=== PATIENT | male | born 1965 | race Caucasian/White ===

== ENCOUNTER 2017-05-25 04:13 | Emergency (ER) | payer SELFPAY ==
[~2017-05-25] VITALS: Ht 177.8 cm; Wt 120.5 kg
[2017-05-25 04:19] VITALS: Ht 177.8 cm; Wt 120.5 kg
[2017-05-25] MEDS ORDERED: morphine 4 MG/ML VIAL IV STA (05:01)
[2017-05-25] MEDS ORDERED: ONDANSETRON 4 MG INJ IV STA (05:01)
[2017-05-25 05:20] LABS: ADD SCAN DIFF NO
--- NOTE | 2017-05-25 05:25 | RADRPT ---
PROCEDURE: Chest. CLINICAL INDICATION: Chest pain. TECHNIQUE: Single frontal view of the chest was obtained. COMPARISON: None. FINDINGS: The cardiac silhouette is enlarged. The aortic arch is unremarkable. There is no focal consolidati on, vascular congestion or pleural effusion. There is no pneumothorax. IMPRESSION: Cardiomegaly. .Ramesh Walls MD, MD Date Time Electronically viewed and signed by .Ramesh Walls MD, on 05/25/2017 05:25 .T/
[2017-05-25 05:26] LABS: BASOPHILS % 0.5 % (0.0-2.0); EOSINOPHILS # 0.2 10^3/ul (0.0-0.5); EOSINOPHILS % 2.7 % (0.0-7.0); HEMATOCRIT 44.3 % (42.0-52.0); HEMOGLOBIN 14.1 g/dl (14.0-18.0); LYMPHOCYTES # 1.2 10^3/ul (0.8-2.9); LYMPHOCYTES % 15.1 % (15.0-51.0); MEAN CORPUSCULAR HEMOGLOBIN 25.5 pg (29.0-33.0); MEAN CORPUSCULAR HGB CONC 31.8 g/dl (32.0-37.0); MEAN CORPUSCULAR VOLUME 80.3 fl (82.0-101.0); MEAN PLATELET VOLUME 12.7 fl (7.4-10.4); MONOCYTE # 0.7 10^3/ul (0.3-0.9); MONOCYTES % 8.9 % (0.0-11.0); NEUTROPHIL # 5.9 10^3/ul (1.6-7.5); NEUTROPHILS % 72.3 % (39.0-77.0); PLATELET COUNT 160 10^3/UL (140-415); RED BLOOD COUNT 5.52 10^6/ul (4.70-6.10); RED CELL DISTRIBUTION WIDTH 13.2 % (11.5-14.5); WHITE BLOOD COUNT 8.1 10^3/ul (4.8-10.8)
[2017-05-25 05:40] LABS: INR 0.94; PROTIME 12.6 Sec (12.2-14.2)
[2017-05-25 05:41] LABS: PARTIAL THROMBOPLASTIN TIME 29.2 Sec (25.0-35.0)
[2017-05-25 05:42] LABS: CALCIUM 9.1 mg/dl (8.4-10.2); CREATININE 0.99 mg/dl (0.61-1.24); POTASSIUM 4.6 mmol/L (3.5-5.1)
[2017-05-25 05:54] LABS: TROPONIN-I 0.025 ng/ml (0.00-0.12)
--- NOTE | 2017-05-25 06:10 | RADRPT ---
PROCEDURE: CT Brain without. CLINICAL INDICATION: Headache TECHNIQUE: A CT of the brain was performed utilizing axial sections from the skull base through th e vertex without contrast. The scan was reviewed in soft tissue brain and high frequency resolution bone algorithm windows. Images were reviewed on a high-resolution PACS workstation. The exam CTDI = 44.81 mGy, and the DLP = 720.23 mGy-cm. One or more of the following dose reduction techniques w ere used: Automated exposure control, adjustment of the mA and / or kV according to patient size, o r use of iterative reconstruction technique. COMPARISON: None available FINDINGS: The ventricles are normal in size and midline in position. There is no intracranial hemorrhage, mid line shift, or mass effect. No abnormal extra-axial fluid collections are identified. The marvin-whi te differentiation is well preserved. The basal cisterns are patent. The posterior fossa is unrema rkable. The visualized portions of the orbits are unremarkable. There is mucosal thickening of the right max illary sinus. The remainder of the paranasal sinuses and mastoid air cells are clear. No calvarial fracture or abnormality are identified. The soft tissues are unremarkable. IMPRESSION: 1. No acute intracranial abnormality identified. 2. Mucosal thickening of the right maxillary sinus. RPTAT: HH .Yvette Allan MD, MD Date Time Electronically viewed and signed by .Yvette Allan MD, on 05/25/2017 06:09 .G/
[2017-05-25] MEDS ORDERED: TRAM50TA2 PO (06:13)
[2017-05-25] MEDS ORDERED: SOD CHLORIDE 0.9% 1,000 ML IV STA (07:01)
--- NOTE | 2017-05-25 07:11 | ERD ---
ER Documentation Chief Complaint Date/Time DATE: 05/25/17 TIME: 07:02 Chief Complaint pt reports not feeling well since thursday, pain with cough and bad hawley HPI This is a 51-year-old male who is been discharged by Dr. Fernandes. The patient told the nurse that he has never seen a physician while he is been in the ER here overnight. He states the only person he is seen is the electronics repair technician, and nurse. The patient is very upset that is being discharged after not even speaking to a physician or having his labs, and x-rays explained to him. I checked the documentation system and there is not a note written on the patient by Dr. Fernandes. Patient is complaining at Thursday he started having some malaise and fatigue with a dull frontal headache. The patient states he has had off-and-on chills throughout the weekend with body aches frontal headache and dry cough. Denies any stiff neck or photophobia no chest pain shortness of breath abdominal pain nausea vomiting diarrhea. 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 The patient states that he drank a few bottles of Pedialyte and feels like he has had less urinary output and he should. He denies any urinary complaints. Denies any focal neurological complaints. No vision or speech change. States his headache is nearly gone at this time. But he states that he does feel like he needs IV fluids. ROS All systems reviewed and are negative except as per history of present illness. Medications Home Meds Active Scripts Tramadol HCl (Tramadol HCl) 50 Mg Tablet, 50 MG PO Q4 Y for PAIN, #20 TAB Prov:ARJUN FERNANDES 05/25/17 Allergies Allergies: Coded Allergies: acetaminophen (Verified Allergy, Unknown, vomiting, 05/25/17) oxycodone (Verified Allergy, Unknown, vomiting, 05/25/17) PMhx/Soc Medical and Surgical Hx: pt denies Medical Hx, pt denies Surgical Hx Hx Alcohol Use: No Hx Substance Use: No Hx Tobacco Use: No Smoking Status: Never smoker FmHx Family History: No coronary disease Physical Exam Vitals Vital Signs Date Time Temp Pulse Resp B/P Pulse Ox O2 Delivery O2 Flow Rate FiO2 05/25/17 05:01 Nasal Cannula 05/25/17 04:19 98.9 123 18 134/83 94 Physical Exam Const: Well-developed, well-nourished Head: Atraumatic, normocephalic Eyes: Normal Conjunctiva, PERRLA, EOMI, normal sclera, no nystagmus ENT: Normal External Ears, Nose and Mouth, moist mucus membranes. Neck: Full range of motion. No meningismus, no lymphadenopathy. Resp: Clear to auscultation bilaterally, no wheezing, rhonchi, rales Cardio: Regular rate and rhythm, no murmurs, S1 S2 present Abd: Soft, non tender x 4, non distended. Normal bowel sounds, no guarding or rebound, no pulsitile abdominal masses or bruits Skin: No petechiae or rashes, no ecchymosis , no maculopapular rash Back: No midline or flank tenderness Ext: No cyanosis, or edema, FROM x 4, normal inspection, neurovascularly intact x 4 Neur: Awake and alert, STR 5/5 x 4, sensation intact x 4, no focal findings, cerebellum intact Psych: Normal Mood and Affect Result Diagram: 05/25/17 0500 05/25/17 0500 Results 24 hrs Laboratory Tests Test 05/25/17 05:00 White Blood Count 8.110^3/ul Red Blood Count 5.5210^6/ul Hemoglobin 14.1g/dl Hematocrit 44.3% Mean Corpuscular Volume 80.3fl Mean Corpuscular Hemoglobin 25.5pg Mean Corpuscular Hemoglobin Concent 31.8g/dl Red Cell Distribution Width 13.2% Platelet Count 69169^3/UL Mean Platelet Volume 12.7fl Neutrophils % 72.3% Lymphocytes % 15.1% Monocytes % 8.9% Eosinophils % 2.7% Basophils % 0.5% Nucleated Red Blood Cells % 0.0/100WBC Neutrophils # 5.910^3/ul Lymphocytes # 1.210^3/ul Monocytes # 0.710^3/ul Eosinophils # 0.210^3/ul Basophils # 0.010^3/ul Nucleated Red Blood Cells # 0.010^3/ul Prothrombin Time 12.6Sec Prothrombin Time Ratio 1.0 INR International Normalized Ratio 0.94 Activated Partial Thromboplast Time 29.2Sec Sodium Level 139mmol/L Potassium Level 4.6mmol/L Chloride Level 101mmol/L Carbon Dioxide Level 27mmol/L Anion Gap 16 Blood Urea Nitrogen 12mg/dl Creatinine 0.99mg/dl Glucose Level 121mg/dl Calcium Level 9.1mg/dl Troponin I 0.025ng/ml B-Type Natriuretic Peptide 123PG/ML Current Medications Medications (Trade) Dose Ordered Sig/Saeed Route PRN Reason Start Time Stop Time Status Last Admin Dose Admin Ondansetron HCl (Zofran Inj) 4 mg ONCE STAT IV 05/25/17 05:01 05/25/17 05:02 DC 05/25/17 05:11 Morphine Sulfate 4 mg 4 mg ONCE STAT IV 05/25/17 05:01 05/25/17 05:02 DC 05/25/17 05:12 Sodium Chloride (NS) 1,000 ml @ 1,000 mls/hr Q1H STAT IV 05/25/17 07:01 05/25/17 08:00 05/25/17 07:19 Procedures/MDM PROCEDURE: CT Brain without. CLINICAL INDICATION: Headache TECHNIQUE: A CT of the brain was performed utilizing axial sections from the skull base through the vertex without contrast. The scan was reviewed in soft tissue brain and high frequency resolution bone algorithm windows. Images were reviewed on a high-resolution PACS workstation. The exam CTDI = 44.81 mGy, and the DLP = 720.23 mGy-cm. One or more of the following dose reduction techniques were used: Automated exposure control, adjustment of the mA and / or kV according to patient size, or use of iterative reconstruction technique. COMPARISON: None available FINDINGS: The ventricles are normal in size and midline in position. There is no intracranial hemorrhage, midline shift, or mass effect. No abnormal extra- axial fluid collections are identified. The marvin-white differentiation is well preserved. The basal cisterns are patent. The posterior fossa is unremarkable. The visualized portions of the orbits are unremarkable. There is mucosal thickening of the right maxillary sinus. The remainder of the paranasal sinuses and mastoid air cells are clear. No calvarial fracture or abnormality are identified. The soft tissues are unremarkable. IMPRESSION: 1. No acute intracranial abnormality identified. 2. Mucosal thickening of the right maxillary sinus. RPTAT: .Yvette Allan MD, MD Date Time Electronically viewed and signed by .Yvette Allan MD, MD on 05/25/2017 06 :09 .G/ CC: ARJUN FERNANDES PROCEDURE: Chest. CLINICAL INDICATION: Chest pain. TECHNIQUE: Single frontal view of the chest was obtained. COMPARISON: None. FINDINGS: The cardiac silhouette is enlarged. The aortic arch is unremarkable. There is no focal consolidation, vascular congestion or pleural effusion. There is no pneumothorax. IMPRESSION: Cardiomegaly. .Ramesh Walls MD, MD Date Time Electronically viewed and signed by .Ramesh Walls MD, MD on 05/25/2017 05:25 .T/ CC: ARJUN FERNANDES EKG: Rate/Rhythm: Sinus tachycardia QRS, ST, QT: NORMAL HI, QRS, QT] Impression: Sinus tachycardia] The patient says his headache is very mild at this time. His CAT scan does not show any evidence of any cranial intracranial pathology or chest x-ray does not show any evidence of pneumonia. The patient's description is likely in having a viral illness having some malaise fatigue body aches chills subjective fever and dry cough. The patient received Zofran and morphine. I will add 1 L of normal saline. The patient has been given discharged instructions by Dr. Edd Nolan as well as a prescription for tramadol. I do feel this patient's symptoms are consistent with a viral illness. He is nontoxic and well-appearing. Departure Diagnosis: Primary Impression: Viral illness Additional Impression: Headache Headache type: unspecified Headache chronicity pattern: acute headache Intractability: not intractable Qualified Code: R51 - Acute nonintractable headache, unspecified headache type Condition: Stable MANASRINROXANEKARL ObieHugo STINSON May 25, 2017 07:11
[2017-05-25 08:37] VITALS: BP 119/62; PULSE 98; RESP 18
== END 2017-05-25 08:38 | disposition home or self-care (01) ==
LOC: E/R 04:13
DX: B34.9 Viral infection, unspecified (principal); R40.2252 Coma scale, best verbal response, oriented, at arrival to emergency department; R07.9 Chest pain, unspecified; R40.2142 Coma scale, eyes open, spontaneous, at arrival to emergency department; R40.2362 Coma scale, best motor response, obeys commands, at arrival to emergency department
CPT/HCPCS: 36415; 70450; 71010; 80048; 83880; 84484; 85025; 85610; 85730; 93005; 96374; 96375; 99285; J2270; J2405; J7030